=== PATIENT | male | born 1995 | race Caucasian/White ===

== ENCOUNTER 2018-12-27 15:46 | Emergency (ER) | payer SELFPAY ==
[~2018-12-27] VITALS: Ht 172.7 cm; Wt 80.0 kg
[2018-12-27 15:49] VITALS: BP 116/53; PULSE 74; RESP 18; Ht 172.7 cm; Wt 80.0 kg
[2018-12-27] MEDS ORDERED: IBUPROFEN 600 MG TAB PO ONE (17:00)
[2018-12-27] MEDS ORDERED: NAPR-985 PO (18:51)
--- NOTE | 2018-12-27 20:02 | ERD ---
ER Documentation Chief Complaint Chief Complaint rt ankle pain , twisted on wednesday HPI 23-year-old male previously healthy presenting to the emergency department complaining of right ankle pain after inversion injury 4 days ago. He states he excellently stepped in a pothole injuring the right ankle. He has been icing and elevating the area at home. He reports moderate to severe pain which is worse with weightbearing. He has been ambulating but limping. He tried no medication for relief of symptoms at home. He denies any falls, head injury, or other symptoms at this time. ROS All systems reviewed and are negative except as per history of present illness. Medications Home Meds Active Scripts Naproxen* (Naprosyn*) 500 Mg Tablet, 500 MG PO BID PRN for PAIN AND/OR INFLAMMATION, #30 TAB Prov:KAILEE FINCH PA-C 12/27/18 Allergies Allergies: Coded Allergies: No Known Allergy (Unverified , 12/27/18) PMhx/Soc Medical and Surgical Hx: pt denies Medical Hx, pt denies Surgical Hx Hx Alcohol Use: No Hx Substance Use: No Hx Tobacco Use: No Smoking Status: Never smoker FmHx Family History: No diabetes Physical Exam Vitals Vital Signs Date Temp Pulse Resp B/P (MAP) Pulse Ox O2 O2 Flow FiO2 Time Delivery Rate 12/27/18 97.8 74 18 116/53 99 15:49 (74) Physical Exam Const: No acute distress Head: Atraumatic Eyes: Normal Conjunctiva ENT: Normal External Ears, Nose and Mouth. Neck: Full range of motion. No meningismus. Resp: No respiratory distress. Skin: No petechiae or rashes Ext: Tenderness palpation over the lateral malleolus on the right lower extremity with associated ecchymosis. Slightly limited range of motion of the right ankle secondary to pain. Patient is neurovascularly intact distally. No obvious deformity or open fractures noted. Neur: Awake and alert Psych: Normal Mood and Affect Results 24 hrs Current Medications Medications Dose Sig/Erma Start Time Status Last (Trade) Ordered Route PRN Stop Time Admin Dose Reason Admin Ibuprofen 600 mg ONCE ONCE 12/27/18 DC 12/27/18 (Motrin) PO 17:00 16:52 12/27/18 17:01 [place] [id number] Radiology Main Line: [phone] DIAGNOSTIC IMAGING REPORT Patient: CHARLY MUSA : 1995 Age: 23 Sex: M MR #: [id number] DOS: 12/27/18 0000 Ordering MD: KAILEE FINCH PA-C Location: [facility] Room/Bed: PROCEDURE: XR Right Ankle. CLINICAL INDICATION: Right ankle pain. TECHNIQUE: 3 views. Frontal, lateral, and oblique. COMPARISON: None. FINDINGS: There is no fracture or dislocation. There is soft tissue swelling overlying the lateral malleolus. Articular surfaces are intact. There is no lytic or blastic lesion. There is no radiopaque foreign body. IMPRESSION: 1. no acute fracture or subluxation. RPTAT: QQ Physician Jihan Date Time Electronically viewed and signed by Physician Jihan on 12/27/2018 18:01 RD/ CC: KAILEE FINCH PA-C [id number] Procedures/MDM 23-year-old male presents to the emergency department with signs and symptoms most consistent with right ankle sprain. X-ray was not concerning for fracture. Patient required [place] wrap for immobilization of right ankle sprain. He was given crutches with training.Splint Assessment: Neurovascularly intact post splint placement with good fit. Patient's extremity symptoms have stabilized while they have been evaluated in the department and are appropriate for outpatient follow up. No evidence of compartment syndrome, neurologic injury, vascular injury, open joint, open fracture, tendon laceration, or foreign body. Patient advised to have 24 to 48-hour follow-up with orthopedic physician and return here immediately for any new or worsening or concerning symptoms. He is in agreement with the diagnosis, plan, need for follow-up, return precautions. Departure Diagnosis: Primary Impression: Right ankle sprain Encounter type: initial encounter Involved ligament of ankle: unspecified ligament Qualified Codes: S93.401A - Sprain of unspecified ligament of right ankle, initial encounter Condition: Fair Patient Instructions: Treating Ankle Sprains Referrals: [facility] YOU HAVE RECEIVED A MEDICAL SCREENING EXAM AND THE RESULTS INDICATE THAT YOU DO NOT HAVE A CONDITION THAT REQUIRES URGENT TREATMENT IN THE EMERGENCY DEPARTMENT. FURTHER EVALUATION AND TREATMENT OF YOUR CONDITION CAN WAIT UNTIL YOU ARE SEEN IN YOUR DOCTORS OFFICE WITHIN THE NEXT 1-2 DAYS. IT IS YOUR RESPONSIBILITY TO MAKE AN APPOINTMENT FOR FOLOW-UP CARE. IF YOU HAVE A PRIMARY DOCTOR --you should call your primary doctor and schedule an appointment IF YOU DO NOT HAVE A PRIMARY DOCTOR YOU CAN CALL OUR PHYSICIAN REFERRAL HOTLINE AT IF YOU CAN NOT AFFORD TO SEE A PHYSICIAN YOU CAN CHOSE FROM THE FOLLOWING [facility] [address] [facility]. [facility] [address] [facility] [facility] [address] [facility] [address] [facility]. [facility] [address] [facility]. [facility]. [address] Additional Instructions: Call your primary care doctor TOMORROW for an appointment during the next 1-2 days.See the doctor sooner or return here if your condition worsens before your appointment time. KAILEE FINCH PA-C Dec 27, 2018 20:02
== END 2018-12-27 19:12 | disposition home or self-care (01) ==
LOC: FTE 15:46
DX: S93.401A Sprain of unspecified ligament of right ankle, initial encounter (principal); X50.1XXA Overexertion from prolonged static or awkward postures, initial encounter; Y92.9 Unspecified place or not applicable